=== PATIENT | female | born 1945 | race Caucasian/White ===

== ENCOUNTER → 2023-06-23 09:09 | Outpatient (REF) | payer MEDICARE, OTHER, SELFPAY ==
[2023-06-23 10:31] LABS: % Basophils 0.8 % (0-2); % Eosinophils 4.3 % (0-6); % Immature Granulocytes 0.2 % (0-0.5); % Lymphocytes 39.8 % (20.5-51.1); % Neutrophils 43.9 % (42.2-75.2); Absolute Basophils 0.1 10^3/uL (0-0.2); Absolute Eosinophils 0.3 10^3/uL (0-0.7); Absolute Lymphocytes 2.5 10^3/uL (1.2-3.4); Absolute Monocytes 0.7 10^3/uL (0.1-0.6); Absolute Neutrophils 2.7 10^3/uL (1.4-6.5); Hematocrit 39.2 % (37.0-47.0); Hemoglobin 13.1 g/dL (12.0-16.0); Mean Corp Hgb Conc. 33.4 g/dL (33.0-37.0); Mean Corpuscular Hgb 31.3 pg (27.0-31.0); Mean Corpuscular Volume 93.6 fL (81.0-99.0); Nucleated Red Blood Cells % 0 %; Platelet Count 159 10^3/uL (130-400); Red Blood Cell Count 4.19 10^6/uL (4.20-5.40); Red Cell Dist. Width 13.7 % (11.5-14.5); White Blood Cell Count 6.2 10^3/uL (4.8-10.8)
[2023-06-23 11:06] LABS: ALT (SGPT) 23 U/L (0-35); AST (SGOT) 39 U/L (14-36); Alkaline Phosphatase 56 U/L (38-126); Blood Urea Nitrogen 17 mg/dl (7-17); Calcium 9.6 mg/dl (8.4-10.2); Carbon Dioxide 28 mmol/L (22-30); Chloride 105 mmol/L (98-107); Glucose 79 mg/dl (70-99); Potassium 4.4 mmol/L (3.5-5.1); Sodium 136 mmol/L (135-145); Total Bilirubin 0.5 mg/dl (0.2-1.3); Total Protein 6.7 g/dl (6.3-8.2); eGFR > 60.00
[2023-06-23 11:17] LABS: C-Reactive Protein < 5.00 mg/L (0.0-10.00)
== END ==
LOC: REG 09:09
PROVIDERS: ATTENDING PHYSICIAN Internal Medicine Rheumatology; FAMILY PHYSICIAN Family Medicine
DX: Z79.899 Other long term (current) drug therapy (principal); M05.89 Other rheumatoid arthritis with rheumatoid factor of multiple sites
CPT/HCPCS: 36415; 80053; 85025; 86140

== ENCOUNTER → 2023-10-28 08:14 | Outpatient (REF) | payer MEDICARE, OTHER, SELFPAY ==
[2023-10-28 10:29] LABS: ALT (SGPT) 24 U/L (0-35); AST (SGOT) 37 U/L (14-36); Albumin 3.9 g/dl (3.5-5.0); Alkaline Phosphatase 57 U/L (38-126); Blood Urea Nitrogen 20 mg/dl (7-17); Calcium 9.7 mg/dl (8.4-10.2); Carbon Dioxide 26 mmol/L (22-30); Chloride 103 mmol/L (98-107); Glucose 86 mg/dl (70-99); HDL Cholesterol 90 mg/dl; LDL Cholesterol, Calculated 46 mg/dl; Potassium 4.4 mmol/L (3.5-5.1); Sodium 140 mmol/L (135-145); Total Bilirubin 0.6 mg/dl (0.2-1.3); Total Cholesterol 146 mg/dl (50-199); Total Protein 6.3 g/dl (6.3-8.2); Triglyceride 52 mg/dl (10-149); Very Low Density Lipoprotein 10 mg/dl (0-30); eGFR > 60.00
[2023-10-28 10:33] LABS: Erythrocyte Sed Rate 22 mm/hour (0-20)
[2023-10-28 11:07] LABS: C-Reactive Protein < 5.00 mg/L (0.0-10.00)
[2023-10-28 11:24] LABS: Vitamin D, 25-OH*** 65.3 ng/mL (30-80)
[2023-10-30 13:45] LABS: Rheumatoid Agglutinin Positive (<10 IU)
[2023-10-30 15:26] LABS: Rheumatoid Agg. Semi-quant 512 IU
== END ==
LOC: REG 08:14
PROVIDERS: ATTENDING PHYSICIAN Family Medicine; FAMILY PHYSICIAN Internal Medicine Rheumatology
DX: E78.5 Hyperlipidemia, unspecified (principal); E55.9 Vitamin D deficiency, unspecified; M06.9 Rheumatoid arthritis, unspecified
CPT/HCPCS: 36415; 80053; 80061; 82306; 85652; 86140; 86430; 86431

== ENCOUNTER 2023-11-16 19:17 | Emergency (ER) | payer MEDICARE, OTHER, SELFPAY ==
[2023-11-16 19:20] VITALS: BP 145/65
--- NOTE | 2023-11-16 20:04 | ED.GENMED ---
History of Present Illness
General
Chief Complaint: Fall
Source: patient
Exam Limitations: none
Time Seen by Provider: 11/16/23 19:20
History of Present Illness
History of Present Illness:
This is a 78 year old female that comes in with c/o fall. States that she was coming out of [facility] she slipped and fell backward hitting her head. States that there was no LOC but that her head is sore. Denies any fever, chills, chest
pain, SOB, abd pain, nausea, vomiting, diarrhea, headache, dizziness, urinary burning.
Past History
Past History
ED Past Medical History: Other (Rheumatoid Arthritis, Sepsis, MItral regurg, )
ED Past Surgical History: Appendectomy, Orthopedic (L and R hip replacement, R and L knee replacement. L tendon repair, Partial fusion left ankle. L and R elbow replacement, L wrist arthroplasty and tendon repair, Ramy shoulder replacements),
Tonsilectomy and Other (Rt. Total Hip Revision, Lt knee revision, Rt. Knee revision, Left hip revision, Total L shoulder replacement, Total R hip replacement, L hand tendon repair, Total Left hip replacement, Partial fusion in Left Ankle, L elbow
replacement, R elbow replacement, R shoulder replacement, Total L knee replavement, Total R knee replacement, Totat L wrist Arthroplasyt and Tendon repair,)
Social History
Tobacco: Non-smoker
Alcohol: Daily (Wine or scotch 1)
Personal:
Living: with family
Review of Systems
Review of Systems
All Other Systems: ROS reviewed and negative except as documented in HPI and ROS
Constitutional: Reports no symptoms; Denies fever or chills
EENT: Reports no symptoms
Respiratory: Reports no symptoms; Denies cough or trouble breathing
Cardiac: Reports no symptoms; Denies chest pain
ABD/GI: Reports no symptoms; Denies abdominal pain, nausea, vomiting or diarrhea
: Reports no symptoms; Denies dysuria, frequency or urgency
Musculoskeletal: Reports other (Posterior head soreness)
Skin: Reports no symptoms
Neurological: Reports no symptoms; Denies dizzy or headache
Psychiatric: Reports no symptoms
Phy Exam
General Physical Exam
General Presentation: well appearing and no apparent distress
General age: appears stated age
General Skin: warm and dry
General Habitus: elderly
General Mental: alert
General Hydration: appears well hydrated
ENT Exam
ENT Exam: TM's normal, pharynx normal and neck supple
Eye Exam
Eye Exam: EOMI
Cardiovascular Exam
Cardiovascular Exam: regular rate/rhythm, no edema and normal peripheral pulses
Pulmonary Exam
Pulmonary Exam: lungs clear, no respiratory distress, no rales, chest non tender, no crackles, no rhonchi, no wheezing and no cough
Gastrointestinal Exam
Gastrointestinal Exam: normal bowel sounds, non tender, soft, no organomegaly, no pulsatile mass and non distended
Musculoskeletal Exam
Musculoskeletal Exam: full ROM, no edema and other (Negative for cervical or spinal tenderness. Patient can cross over abduct, flex elbow, move fingers . Negative discomfort with flexion of the knee's. Patient walked after the cortney. )
Skin Exam
Skin Exam: normal color, warm/dry, no rash, no petechia and laceration (Posterior left scalp laceration)
Psychiatric Exam
Psychiatric Exam: normal mood/affect
Course
Orders/Labs/Results
Orders:
Orders
11/16/23 19:41
CT Cervical Spine W/o Iv Contr Urgent
Comment: RA
Reason For Exam: fall backward hitting head and neck.
CT Head W/o Iv Contrast Urgent
Comment:
Reason For Exam: fall backward hitting head
11/16/23 21:34
CR Ankle - Right Min 3 Views * Urgent
Reason For Exam: fall, ankle pain
Vital Signs
Initial and Last Documented VS:
Initial Vital Signs
Temp Pulse Resp BP Pulse Ox
97.8 F 57 18 145/65 97
11/16/23 19:20 11/16/23 19:20 11/16/23 19:20 11/16/23 19:20 11/16/23 19:20
Last Documented Vital Signs
Temp Pulse Resp BP Pulse Ox
97.8 F 57 18 145/65 97
11/16/23 19:20 11/16/23 19:20 11/16/23 19:20 11/16/23 19:20 11/16/23 19:20
Procedures
Laceration Closure
Left Posterior Scalp:
Status of Wound: clean
Size of Wound in cm: 4
Description of Wound Edges: sharp
Preparation: cleaned with saline
Wound exploration: explored to base- no FB
Type of Closure: other (poornima 4)
MDM/Problems Addressed
Differential Diagnosis Includes:
Laceration scalp, Accidental fall
MDM/Problems Addressed:
This is a 78 year old female that comes in with c/o fall. States that she slipped coming out of [facility] and fell backward hitting her head. Denies any LOC.
Will get CT of the head and cervical spine. Laceration closed with poornima.
CT cont- and C6/C7. 2mm anterolisthesis of C6 on C7 secondary to severe right-sided facet joint arthrosis. NO Ct evidence for acute fracture in the cervical spine.
Back into see patient. Explained that her CT of the cervical spine shows degenerative changes with some spinal stenosis and compression on the spine. Patient states that she is aware of this. States that when she got up to the her right ankle was
sore. Patient has ice on the ankle. Will get an X-ray before discharge.
Into see patient. Explained that she does have a fracture of the ankle. Will place in an ortho boat and have patient follow up with the accounts specialist.
Chronic conditions affecting care:
RA ,
Acute Exacerbation and/or Progression of Chronic Illness:
NA
*Radiology
Radiology exam reviewed: radiology read reviewed (Ct head-Acute scalp soft tissue laceration posterior to the left parietal bone. NO Ct evidence for acute intracranial hemorrhage. MIld diffuse cerebral and cerebellar volume loss. Mild
periventricular white matter leukoaraiosis. 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 CT cervical spine-
Very severe degenerative diseaes at C1/C2 causing moderate spinal cord compression and central canal stenosis. Moderate discogenic degenerative disease at C3/C4, C4/C5, C5/C6 with a large right centr) and other (CT cont-central disc-osteophyte
complex at C3/C4 causing mild to moderate spinal cord compression and very severe right neural foraminal narrowing. Mild spinal cord compression and severe bilateral neural foraminal narrowing at C4/C5. Severe right-sided facet joint arthrosis at
C3/C4 C4/C5, C5/C6 )
*Pulse Oximetry
Patient hypoxic: no
*EKG
Interpreted by ED Provider?: NA
Rate: EKG- N/A
*Seaman Officer Interpretation
Rate: Seaman Officer- N/A
*Critical Care Note
Total Time (30-74mins, 75-104mins- exclusive of procedures): Not Applicable
ED Attending Note
-
Portions of this chart may have been created with voice recognition software.� Occasional wrong word or��sound alike� substitutions may have occurred due to the inherent limitations of voice recognition software.
Discharge Plan
Departure
Patient Disposition: Home (Routine Discharge)
Date of Disposition: 11/16/23
Time of Disposition: 22:00
Patient with high blood pressure during this ER visit?: Yes
Condition: Good
Covid-19: Not Applicable
Discharge Problem:
Accidental fall, Laceration of scalp, Ankle fracture, right
Instructions: Laceration Repair With Poornima (DC), Preventing falls in adults, Ankle Fracture ED, BLOOD PRESSURE, RICE Therapy
Prescriptions:
No Action
B-100 Complex
1 tab PO DAILY
ascorbic acid (vitamin C) [Vitamin C] 500 MG tablet
500 mg PO DAILY
celecoxib 200 MG capsule
200 mg PO DAILY
Patient Comments:
07/03/17 patient orders from [facility], can only take BRAND Ni pradhan
cholecalciferol (vitamin D3) 2,000 UNITS tablet
2,000 unit PO QPM
Calcium Citrate
1 tab PO BID
furosemide 40 MG tablet
40 mg PO BID Qty: 28 0RF
acetaminophen 325 MG tablet
650 mg PO Q6HPRN PRN (Reason: mild pain) 0RF
aspirin 81 MG tablet,delayed release (DR/EC)
81 mg PO DAILY Qty: 90 3RF
potassium chloride [Klor-Con M20] 20 MEQ tablet,ER particles/crystals
20 meq PO BID Qty: 28 0RF
metoprolol succinate 12.5 MG tablet extended release 24 hr
12.5 mg PO QPM Qty: 30 3RF
oxycodone 5 MG tablet
5 mg PO Q6HPRN PRN (Reason: moderate to severe pain) Qty: 14 0RF
Referrals:
Phoenix Ramos MD [Active] - Follow up in 2-3 days
Dylan Perkins MD [Family Provider] - Follow up in 5-7 days
Activity Restrictions/Additional Instructions:
As discussed, your CT of the head is negative for any acute process. There is degenerative changes in the cervical spine with narrowing and some compression the spinal cord. Your Ankle is fractured. You have been place in an orthopedic boat. Please
wear this when up walking around. Follow up with the accounts specialist. Ice and elevate You may be mores sore tomorrow then today. You may use Tylenol 1000mg every 6 hours for pain. Ice to any area that is sore. Follow up with the family doctor
in the next 5-7 days for staple removal. Please keep this area dry for the next 24 hours and then just pat the area to wash but do not scrub. IF YOU HAVE VOMITING MORE THEN TWICE, HEADACHE NOT RELIEVED BY TYLENOL OR YOU HAVE ANY OTHER CONCERNS
PLEASE RETURN TO THE EMERGENCY ROOM.
Interventions
Interventions:
*Risk Screen - Suicide Last Done: 11/16/23 19:23
*General Assessment Last Done: 11/16/23 19:25
*Neglect/Abuse Screening Last Done: 11/16/23 19:23
*ED COVID-19 Vaccine History Last Done: 11/16/23 19:23
ED-Musculoskeletal Assessment Last Done: 11/16/23 19:25
ED- Neurological Assessment Last Done: 11/16/23 19:22
ED-Skin Assessment Last Done: 11/16/23 19:25
Discharge Date and Time
Print Language: LIBYAN
== END 2023-11-16 22:52 | disposition home or self-care (01) ==
LOC: EMR 19:17
PROVIDERS: EMERGENCY PHYSICIAN Emergency Medicine; FAMILY PHYSICIAN Family Medicine
DX: S01.01XA Laceration without foreign body of scalp, initial encounter (principal); S82.831A Other fracture of upper and lower end of right fibula, initial encounter for closed fracture; W01.0XXA Fall on same level from slipping, tripping and stumbling without subsequent striking against object, initial encounter
CPT/HCPCS: 99284; 70450; 72125; 73610

== ENCOUNTER → 2024-02-28 09:25 | Outpatient (REF) | payer MEDICARE, OTHER, SELFPAY ==
[2024-02-28 11:20] LABS: % Basophils 0.6 % (0-2); % Eosinophils 2.6 % (0-6); % Immature Granulocytes 0.5 % (0-0.5); % Lymphocytes 31.5 % (20.5-51.1); % Monocytes 9.7 % (1.7-9.3); % Neutrophils 55.1 % (42.2-75.2); Absolute Basophils 0.1 10^3/uL (0-0.2); Absolute Eosinophils 0.2 10^3/uL (0-0.7); Absolute Lymphocytes 2.5 10^3/uL (1.2-3.4); Absolute Monocytes 0.8 10^3/uL (0.1-0.6); Absolute Neutrophils 4.3 10^3/uL (1.4-6.5); Hematocrit 41.3 % (37.0-47.0); Hemoglobin 13.4 g/dL (12.0-16.0); Mean Corp Hgb Conc. 32.4 g/dL (33.0-37.0); Mean Corpuscular Hgb 31.2 pg (27.0-31.0); Nucleated Red Blood Cells % 0 %; Platelet Count 198 10^3/uL (130-400); Red Cell Dist. Width 13.2 % (11.5-14.5); White Blood Cell Count 7.8 10^3/uL (4.8-10.8)
[2024-02-28 11:31] LABS: ALT (SGPT) 20 U/L (0-35); AST (SGOT) 30 U/L (14-36); Alkaline Phosphatase 68 U/L (38-126); Blood Urea Nitrogen 20 mg/dl (7-17); Calcium 9.8 mg/dl (8.4-10.2); Carbon Dioxide 30 mmol/L (22-30); Chloride 101 mmol/L (98-107); Glucose 79 mg/dl (70-99); Potassium 4.5 mmol/L (3.5-5.1); Sodium 137 mmol/L (135-145); Total Bilirubin 0.3 mg/dl (0.2-1.3); Total Protein 6.7 g/dl (6.3-8.2); eGFR > 60.00
[2024-02-28 11:54] LABS: TSH 1.88 uIU/ml (0.47-4.68)
[2024-02-28 12:04] LABS: C-Reactive Protein < 5.00 mg/L (0.0-10.00)
== END ==
LOC: REG 09:25
PROVIDERS: ATTENDING PHYSICIAN Physician Assistant; FAMILY PHYSICIAN Family Medicine
DX: M05.89 Other rheumatoid arthritis with rheumatoid factor of multiple sites (principal); M81.0 Age-related osteoporosis without current pathological fracture; R94.5 Abnormal results of liver function studies; Z13.820 Encounter for screening for osteoporosis; Z51.81 Encounter for therapeutic drug level monitoring; Z79.899 Other long term (current) drug therapy
CPT/HCPCS: 36415; 80053; 84155; 84165; 84443; 85025; 86140

== ENCOUNTER → 2024-04-10 10:05 | Outpatient (REF) | payer MEDICARE, OTHER, SELFPAY | LOC: RCS 10:05 | PROVIDERS: ATTENDING PHYSICIAN Internal Medicine Cardiovascular Disease; FAMILY PHYSICIAN Family Medicine | DX: Z95.2 Presence of prosthetic heart valve (principal) | CPT/HCPCS: 93306 ==

== ENCOUNTER → 2024-09-17 12:33 | Outpatient (REF) | payer MEDICARE, OTHER, SELFPAY | LOC: RAD 12:33 | PROVIDERS: ATTENDING PHYSICIAN Family Medicine | DX: R05.9 Cough, unspecified (principal) | CPT/HCPCS: 71046 ==

== ENCOUNTER → 2024-10-16 07:20 | Outpatient (REF) | payer MEDICARE, OTHER, SELFPAY ==
[2024-10-16 08:55] LABS: Urine Character Clear (Clear)
[2024-10-16 08:55] LABS: Hematocrit 42.5 % (37.0-47.0); Hemoglobin 13.8 g/dL (12.0-16.0); Mean Corp Hgb Conc. 32.5 g/dL (33.0-37.0); Mean Corpuscular Volume 95.5 fL (81.0-99.0); Nucleated Red Blood Cells % 0 %; Platelet Count 144 10^3/uL (130-400); Red Cell Dist. Width 14.3 % (11.5-14.5)
[2024-10-16 10:41] LABS: Urine Red Blood Cell 0-2 /HPF (0-2)
[2024-10-16 10:57] LABS: ALT (SGPT) 21 U/L (0-35); AST (SGOT) 34 U/L (14-36); Albumin 4.3 g/dl (3.5-5.0); Alkaline Phosphatase 58 U/L (38-126); Blood Urea Nitrogen 18 mg/dl (7-17); Calcium 9.5 mg/dl (8.4-10.2); Carbon Dioxide 28 mmol/L (22-30); Chloride 104 mmol/L (98-107); Glucose 80 mg/dl (70-99); Potassium 4.0 mmol/L (3.5-5.1); Sodium 138 mmol/L (135-145); Total Protein 6.9 g/dl (6.3-8.2); Very Low Density Lipoprotein 11 mg/dl (0-30); eGFR > 60.00
[2024-10-16 10:58] LABS: C-Reactive Protein < 5.00 mg/L (0.0-10.00)
[2024-10-16 11:14] LABS: Vitamin D, 25-OH*** 56.6 ng/mL (30-80)
[2024-10-16 11:26] LABS: HDL Cholesterol 110 mg/dl; LDL Cholesterol, Calculated 44 mg/dl
== END ==
LOC: REG 07:20
PROVIDERS: ATTENDING PHYSICIAN Internal Medicine Rheumatology; OTHER PHYSICIAN Family Medicine
DX: M05.89 Other rheumatoid arthritis with rheumatoid factor of multiple sites (principal); M81.0 Age-related osteoporosis without current pathological fracture; R94.5 Abnormal results of liver function studies; Z79.899 Other long term (current) drug therapy; E55.9 Vitamin D deficiency, unspecified; E78.5 Hyperlipidemia, unspecified
CPT/HCPCS: 36415; 80053; 80061; 81003; 81015; 82306; 85025; 86140